=== PATIENT | female | born 1975 | race Caucasian/White ===

== ENCOUNTER → 2016-07-29 | Outpatient (CLI) | payer BC ==
--- NOTE | 2016-07-30 10:04 | Diagnostic Imaging Report ---
EXAM: Bilateral screening mammogram The current study was also evaluated with a Computer Aided Detection (CAD) system. INDICATION: Screening. No current complaints stated on the questionnaire. COMPARISON: 07/08/2015. FINDINGS: The breasts are composed of heterogeneously dense parenchyma which may decrease mammographic sensitivity. There are developing loosely clustered punctate calcifications in the breasts bilaterally along the central aspect of each breast. These are perhaps vascular. There is no definite developing mass. IMPRESSION: Loosely clustered increased calcifications in the center of each breast bilaterally are favored to be benign. Better evaluation however is recommended with focal compression magnification views. BI-RADS 0. ACR BI-RADS Category 0: Incomplete. (Needs additional imaging evaluation). Result letter will be mailed to the patient. Note: At least 10% of breast cancer is not imaged by mammography. Dictated by: Dictated on workstation # [id number]
== END ==
LOC: RAD 10:14
PROVIDERS: ATTEND Nurse Practitioner
DX: Z12.31 Encounter for screening mammogram for malignant neoplasm of breast (principal)
CPT/HCPCS: 77067